=== PATIENT | female | born 1970 | race Caucasian/White ===

== ENCOUNTER 2024-07-06 15:20 | Emergency (ER) | payer BC ==
[~2024-07-06] VITALS: Ht 162.6 cm; Wt 85.5 kg
[2024-07-06] MEDS ORDERED: AUGMENTIN 500-1 EACH PO (15:42)
[2024-07-06] MEDS: BACITRACIN ZINC 0.9GM TP ONE (16:06)
[2024-07-06] MEDS: DIPHTH,PERTUSS(ACELL),TET VAC 0.5 ML SYRINGE IM ONE (16:06)
[2024-07-06] MEDS: AMOXICILLIN/CLAVULANATE K 875 MG TAB PO ONE (16:06)
[2024-07-06 16:41] VITALS: PULSE 102; RESP 18; TEMP 97.3; O2SAT 98
== END 2024-07-06 17:28 | disposition home or self-care (01) ==
LOC: FSED 15:39
DX: S61.235A Puncture wound without foreign body of left ring finger without damage to nail, initial encounter (principal); W54.0XXA Bitten by dog, initial encounter; Y92.89 Other specified places as the place of occurrence of the external cause; I10 Essential (primary) hypertension; E11.9 Type 2 diabetes mellitus without complications; E78.5 Hyperlipidemia, unspecified; D64.9 Anemia, unspecified
CPT/HCPCS: 99284